=== PATIENT | male | born 1985 | race Two or more races ===

== ENCOUNTER 2022-03-31 13:49 | Emergency (ER) | payer SELFPAY ==
[2022-03-31 13:55] VITALS: BP 128/89; PULSE 56; RESP 18; TEMP 97.3; BMI 40.3
[2022-03-31] MEDS ORDERED: ACETAMINOPHEN 1000 MG/100 ML BAG IVPB ONE (14:14)
[2022-03-31] MEDS ORDERED: SODIUM CHLORIDE 0.9% 500 ML INFUS.BAG IV ONE (14:14)
[2022-03-31] MEDS ORDERED: ACETAMINOPHEN INJECTION 100 ML IVPB ONE (14:31)
[2022-03-31 14:44] LABS: BASO % 0.6 % (0-2.0); EOS % 1.5 % (0-4.5); HEMATOCRIT 46.1 % (35.4-49); HEMOGLOBIN 16.3 GM/dL (11.7-16.9); LYMPH % 15.1 % (8-40); MCH 30.3 pg (25.7-33.7); MCHC 35.2 g/dl (32.0-35.9); MEAN CELL VOLUME 85.8 fl (80-96); MEAN PLT VOLUME 7.9 fl (7.5-11.1); MONO % 4.8 % (3.8-10.2); PLATELET COUNT 307 10^3/uL (134-434); RBC 5.37 M/mm3 (4.00-5.60); RDW 12.1 % (11.9-15.9)
[2022-03-31 15:02] LABS: CALCIUM 9.3 mg/dL (8.5-10.1)
[2022-03-31 15:03] LABS: ALBUMIN 4.2 g/dl (3.4-5.0)
[2022-03-31 15:06] LABS: CREATININE 1.1 mg/dL (0.55-1.3)
[2022-03-31 15:07] LABS: BILIRUBIN,TOTAL 0.6 mg/dL (0.2-1); TOT PROT 7.3 g/dl (6.4-8.2)
[2022-03-31 15:28] LABS: EPI CELLS 5 /uL (0-25.1); HYALINE CASTS 0 /uL (0-3.1); PH,URINE 6.5 (5.0-8.0); URINE APPEARANCE CLEAR; URINE BACTERIA 2595 /uL (0-1359); URINE BILIRUBIN NEGATIVE (NEGATIVE); URINE COLOR YELLOW; URINE GLUCOSE (UA) NEGATIVE (NEGATIVE); URINE KETONE TRACE (NEGATIVE); URINE LEUK ESTERASE NEGATIVE (NEGATIVE); URINE NITRITE NEGATIVE (NEGATIVE); URINE PROTEIN NEGATIVE (NEGATIVE); URINE RBC 734 /uL (0-23.9); URINE UROBILINOGEN 0.2 mg/dL (0.2-1.0); URINE WBC 3 /uL (0-25.8)
[2022-03-31] MEDS ORDERED: TAMSULOSIN HCL 0.4 MG CAP PO ONE (16:59)
[2022-03-31] MEDS ORDERED: TAMSULOSIN HCL 0.4 MG CAP ONE (17:32)
== END 2022-03-31 18:13 | disposition home or self-care (01) ==
LOC: JER 13:49
PROC: 3E033GC Introduction of Other Therapeutic Substance into Peripheral Vein, Percutaneous Approach (ICD-10-PCS; principal; 2022-03-31)
DX: N20.0 Calculus of kidney (principal)
CPT/HCPCS: 36415; 74176-TC; 80053; 81003; 85025; 87086; 99285-25